=== PATIENT | male | born 1980 | race Caucasian/White ===

== ENCOUNTER 2023-10-05 18:43 | Emergency (ER) | payer MEDICAID ==
[~2023-10-05] VITALS: Ht 182.9 cm; Wt 93.5 kg
[2023-10-05] MEDS ORDERED: diphenhydrAMINE 50 mg/ml inj IM ONE (21:30)
[2023-10-05] MEDS ORDERED: proCHLORperazine 10 MG/2 ml inj IM ONE (21:30)
[2023-10-05 22:24] VITALS: BP 140/88; PULSE 80; TEMP 98.4; O2SAT 100
[2023-10-05 22:28] VITALS: RESP 18
== END 2023-10-05 22:30 | disposition home or self-care (01) ==
LOC: ER 18:43
DX: G43.909 Migraine, unspecified, not intractable, without status migrainosus (principal)
CPT/HCPCS: 70450; 96372; 99285; J0780; J1200